=== PATIENT | male | born 2000 | race Caucasian/White ===

== ENCOUNTER 2022-05-12 06:45 | Emergency (ER) | payer SELFPAY ==
[2022-05-12 06:52] VITALS: BP 134/85; PULSE 112; RESP 16; TEMP 37; O2SAT 98
--- NOTE | 2022-05-12 07:14 | CRLHL7_ITS ---
For Patients: As a result of the Century Cures Act, medical imaging exams and procedure reports are released immediately into your electronic medical record. You may view this report before your referring provider. If you have questions, please contact your health care provider. INDICATION: Left upper quadrant pain. COMPARISON: None. TECHNIQUE: Abdomen 4 view. FINDINGS: Nonobstructive bowel gas pattern. Mild amount of gas and stool throughout the colon. No pneumatosis or free air. The lung bases are clear. The bones are unremarkable. IMPRESSION: Nonobstructive bowel gas pattern. Dictated by Jaja Steele MD @ 05/12/2022 7:37:27 AM (Electronically Signed)
--- NOTE | 2022-05-12 07:15 | ED_ITS ---
HPI - General Adult General Chief complaint: Abdominal Pain Stated complaint: Abdominal pain,blood in stool Time Seen by Provider: 05/12/22 06:56 Source: patient Mode of arrival: ambulatory History of Present Illness HPI narrative: Patient presents with a two-month history of intermittent abdominal pain, currently 2/10 but 2 days ago was 8/10. Pain is mainly in the epigastrium and left upper quadrant of the abdomen comes in crampy waves. No fever, no nausea or vomiting. He has been having some greenish colored stools and he had read on the Internet that this could be a sign of an infection. He reports that yesterday he also had a stool that could have been a little streaked with blood, no prior history of that happening and no persistent blood. He has no history of inflammatory bowel disease, no family history of inflammatory bowel disease or colon cancers. Appetite has been normal, no weight loss. He does regularly smoke marijuana and smells of such today. He states that pain does occasionally radiate into his testicles. It is not associated with lifting or heavy exercise. 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 There is no dysuria. Pain is not currently present in the testicles. Denies STDs. Has not tried any Tylenol or ibuprofen to help with his symptoms. Has not made an appropriate clinic visit to get this investigated. Past medical history benign per his report, no long-term health problems. No prior surgeries. Socially no recent alcohol but does report that he smokes cigarettes and also regularly uses marijuana. No pertinent travel. Family history is negative for Crohn's disease and colon cancers. No known drug allergies, no long-term prescription medications. ROS is notable for the GI symptoms as above only, otherwise denies times 12 systems. He was offered an educational interpreter for his rectal and testicular exam today and he declined. Related Data Home Medications Medication Instructions Recorded Confirmed No Known Home Medications 05/12/22 05/12/22 Allergies Allergy/AdvReac Type Severity Reaction Status Date / Time No Known Drug Allergies [facility] Verified 05/12/22 06:57 [facility] Social History Smoking Status: Unknown if ever smoked Non-prescribed substance use: denies use service: No Exam Const: Vital Signs, click to edit/add: Vital Signs - 24 hr 05/12/22 06:52 Temperature 98.6 F Pulse Rate [Left P ulse Oximeter] 112 H Respiratory Rate 16 Blood Pressure [Ri ght Upper Arm] 134/85 Pulse Oximetry 98 Oxygen Delivery Me thod Room Air Documenting provider has reviewed patient's vital signs: yes Common normals: no apparent distress General appearance: cooperative and well kempt Other: Moderate insight HENMT: Common normals: normocephalic and head/scalp atraumatic Head and scalp: normocephalic and atraumatic Face and sinus: normal facial exam Mouth: oral and palatal mucosa normal Throat: posterior oropharynx normal Eye: Common normals: conjunctivae normal General eye: normal appearance of both eyes Conjunctiva: conjunctiva(e) normal Neck & C-Spine: Common normals: full ROM and no lymphadenopathy Resp: Common normals: normal respiratory effort, no retractions, no use of accessory muscles and clear to auscultation bilaterally Effort & inspection: able to speak in complete sentences Auscultation: clear to auscultation bilaterally Cardio: Common normals: regular rate, regular rhythm, S1 normal heart sound, S2 normal heart sound, no murmurs and peripheral pulses 2+ throughout Rate: regular rate Rhythm: regular rhythm Heart sounds: S1 normal and S2 normal Peripheral pulses: pulses 2+ throughout GI: Common normals: Normal to inspection, nondistended, normoactive bowel sounds present, soft to palpation, non-tender, no hepatosplenomegaly and no masses Palpation: soft and no hepatosplenomegaly Other: Rectal exam with normal external rectum, normal tone. Normal rectal vault, no mass. Sample is collected, no blood visible, stool and mucus mix in sample. Hemoccult is negative. : Common normals: no CVA tenderness Bladder/kidney exam: no CVA tenderness Scrotum: testes descended bilaterally and cremasteric reflex present Testes: testicular lie normal and epididymides normal; no testicular swelling, no testicular tenderness and no testicular mass Back & Pelvis: Common normals: no CVA tenderness Neuro: Motor exam: strength 5/5 throughout, no tremor noted and no movement abnormalities noted Psych: Appearance: well kempt Attitude: calm Attention/concentration: attention grossly intact and concentration grossly intact Insight: fair Judgement: fair Skin: Common normals: no rashes or lesions noted General skin exam: no rashes or lesions noted Course Vital Signs Vital signs: Initial Vital Signs Temperature 98.6 F 05/12/22 06:52 Temperature Source Temporal Artery Scan 05/12/22 06:52 Pulse Rate 112 H 05/12/22 06:52 Pulse Rhythm 05/12/22 06:52 Respiratory Rate 16 05/12/22 06:52 Blood Pressure 134/85 05/12/22 06:52 Blood Pressure Mean 101 05/12/22 06:52 Blood Pressure Position Semi-Fowlers 05/12/22 06:52 Pulse Oximetry 98 05/12/22 06:52 Oxygen Delivery Method 05/12/22 06:52 Vital Signs Temperature 98.6 F 05/12/22 06:52 Pulse Rate 112 H 05/12/22 06:52 Respiratory Rate 16 05/12/22 06:52 Blood Pressure 134/85 05/12/22 06:52 Pulse Oximetry 98 05/12/22 06:52 Oxygen Delivery Method 05/12/22 06:52 Temperature 98.6 F 05/12/22 06:52 Pulse Rate 112 H 05/12/22 06:52 Respiratory Rate 16 05/12/22 06:52 Blood Pressure 134/85 05/12/22 06:52 Pulse Oximetry 98 05/12/22 06:52 Oxygen Delivery Method 05/12/22 06:52 Medical Decision Making MDM Narrative Medical decision making narrative: Their rental diagnosis including obstruction, colitis, pancreatitis. Suspect mild gastroenteritis or irritable bowel disease based on chronicity. I do not have concerns regarding the color of his stools. A stool Hemoccult was collected and is negative in the room today. Recommend some basic labs, x-ray. These will likely be reassuring. Will recommend conservative management, fiber supplement and appropriate primary care follow-up if labs are reassuring. Update: Patient remains minimally symptomatic. Normal labs and x-ray reviewed with patient. Do not recommend further workup. Suspect irritable bowel verses intermittent bouts of gastroenteritis. Encouraged diet rich in fresh fruits and vegetables, lower in processed foods and following up with primary care fits symptoms persist. Suspect mild irritable bowel syndrome. Consider dairy reduction and low FODMAP diet if not improving to his expectations. Lab Data Lab results reviewed: Yes I reviewed the patient's lab results Labs: Lab Results 05/12/22 05/12/22 Range/Units 07:30 07:30 WBC 5.99 (4.50-11.00) K/uL RBC 5.22 (4.30-5.90) m/uL Hgb 15.8 (13.5-17.5) gm/dL Hct 45.7 (37.0-53.0) % MCV 88 (80-100) fL MCH 30 (26-34) pg MCHC 35 (32-36) gm/dL RDW Coeff of Grzegorz 11.9 (11.5-15.5) % Plt Count 238 (140-440) K/uL Neut % (Auto) 57.3 (42.0-72.0) % Lymph % (Auto) 35.7 (20-44) % [place] % (Auto) 5.2 (0.0-11.0) % Eos % (Auto) 0.8 (0.0-7.0) % Baso % (Auto) 0.8 (0.0-3.0) % Neut # (Auto) 3.43 (1.7-7.0) K/uL Lymph # (Auto) 2.14 (0.90-2.90) K/uL [place] # (Auto) 0.30 (0.00-0.90) K/UL Eos # (Auto) 0.05 (0.00-0.50) K/uL Baso # (Auto) 0.05 (0.00-0.30) K/uL Sodium 141 (135-149) mmol/L Potassium 4.1 (3.6-5.1) mmol/L Chloride 107 (96-114) mmol/L Carbon Dioxide 27 (20-32) mmol/L BUN 7 (5-24) mg/dL Creatinine 0.7 (0.5-1.5) mg/dL Estimated GFR 134 ml/min Glucose 113 (60-115) mg/dL Calcium 9.0 (8.4-10.6) mg/dL Total Bilirubin 0.5 (0.1-1.5) mg/dL AST 28 (12-35) U/L ALT 18 (4-50) U/L Alkaline Phosphatase 58 (40-150) U/L C-Reactive Protein < 0.5 L (0.5-1.0) mg/dL Total Protein 7.8 (6.0-8.3) g/dL Albumin 4.6 (3.3-5.0) g/dL Lipase 46 (23-300) U/L Imaging Data Abdominal x-ray: Attestation: I have reviewed the pertinent imaging results. My impression: Normal Radiologist's impression: FINDINGS: Nonobstructive bowel gas pattern. Mild amount of gas and stool throughout the colon. No pneumatosis or free air. The lung bases are clear. The bones are unremarkable. IMPRESSION: Nonobstructive bowel gas pattern. Discharge Plan Discharge Clinical Impression: IBS (irritable bowel syndrome) Condition: Improved Instructions: Irritable Bowel Syndrome (DC) Additional Instructions: As we discussed, your labs and x-ray appear normal. In the emergency department, it is our dropped white and if I any emergent wrist to your health and none have been found. I suspect that your symptoms are related to irritable bowel syndrome. As we discussed, I would strongly encourage diet richer in fresh fruits and vegetables and lower in processed food. I would encourage daily exercise with cardiovascular goals rather than just weightlifting. If your symptoms persist, please make a clinic appointment to discuss options. Consider a reduced dairy or low FODMAP diet. You can research these on the Internet as well to see if these help with your symptoms. You may resume all typical activities. I would strongly discourage marijuana use as this is linked to chronic abdominal pain as well. Activity Level: No Restrictions Discharge Diet: Regular Prescriptions: No Action No Known Home Medications Follow Up/Referrals: Herve Engle MD [Primary Care Provider] - Stand Alone Forms: [employer] Info Instructions
[2022-05-12] MEDS: ACETAMINOPHEN 500 MG TABLET 1000 MG PO (07:26)
[2022-05-12 07:36] LABS: Basophils Absolute Auto 0.05 K/uL (0.00-0.30); Basophils Percent Auto 0.8 % (0.0-3.0); Eosinophils Absolute Auto 0.05 K/uL (0.00-0.50); Eosinophils Percent Auto 0.8 % (0.0-7.0); Hematocrit 45.7 % (37.0-53.0); Hemoglobin* 15.8 gm/dL (13.5-17.5); Immature Granulocytes Abs Auto 0.01 K/uL (0.00-0.30); Immature Granulocytes Pct Auto 0.2 %; Lymphocytes Absolute Auto 2.14 K/uL (0.90-2.90); Lymphocytes Percent Auto 35.7 % (20-44); Mean Corpuscular HGB Conc 35 gm/dL (32-36); Mean Corpuscular Hemoglobin 30 pg (26-34); Mean Corpuscular Volume 88 fL (80-100); Monocytes Percent Auto 5.2 % (0.0-11.0); Neutrophils Absolute Auto 3.43 K/uL (1.7-7.0); Neutrophils Percent Auto 57.3 % (42.0-72.0); Platelet Count* 238 K/uL (140-440); RDW Coefficient of Variation % 11.9 % (11.5-15.5); Red Blood Count 5.22 m/uL (4.30-5.90); White Blood Count* 5.99 K/uL (4.50-11.00)
[2022-05-12 07:37] LABS: Slide Review Reflex No
[2022-05-12 07:48] LABS: Albumin* 4.6 g/dL (3.3-5.0); Chloride* 107 mmol/L (96-114); Sodium* 141 mmol/L (135-149)
[2022-05-12 07:49] LABS: Potassium* 4.1 mmol/L (3.6-5.1)
[2022-05-12 07:51] LABS: Alkaline Phosphatase* 58 U/L (40-150); Aspartate Amino Transferase* 28 U/L (12-35); Bilirubin Total* 0.5 mg/dL (0.1-1.5); Carbon Dioxide* 27 mmol/L (20-32); Creatinine* 0.7 mg/dL (0.5-1.5); Estimated Glomerular Filt Rate 134 ml/min; Total Protein* 7.8 g/dL (6.0-8.3)
[2022-05-12 07:52] LABS: Alanine Aminotransferase* 18 U/L (4-50); Blood Urea Nitrogen* 7 mg/dL (5-24); Glucose* 113 mg/dL (60-115); Lipase* 46 U/L (23-300)
[2022-05-12 07:55] LABS: C Reactive Protein* < 0.5 mg/dL (0.5-1.0)
== END 2022-05-12 08:38 | disposition home or self-care (01) ==
PROVIDERS: Emergency Provider Family Medicine; PCP Family Medicine
DX: K58.9 Irritable bowel syndrome, unspecified (principal)
CPT/HCPCS: 36415; 74019; 80053; 81003; 83690; 85025; 86140; 99283; 99284; A9270